=== PATIENT | male | born 1945 | race Caucasian/White ===

== ENCOUNTER 2019-05-13 21:38 | Inpatient (IN) | payer MEDICARE ==
[~2019-05-13] VITALS: Ht 172.7 cm; Wt 98.6 kg
[2019-05-13 22:02] LABS: Urine Bacteria NONE SEEN /hpf (None Seen); Urine Blood 3+ /uL (Negative); Urine WBC 24 /hpf (0 - 3)
[2019-05-13 22:03] LABS: Urine Specific Gravity 1.028 (1.001-1.035)
[2019-05-13 22:14] LABS: Basophils # (auto) 0.1 uL; Basophils % (auto) 0.5 % (0.0-2.0); Eosinophils # (auto) 0 uL; Eosinophils % (auto) 0.2 % (0.0-7.0); Hematocrit 39.8 % (41.0-53.0); Hemoglobin 13.5 g/dL (13.5-17.5); Lymphocytes % (auto) 8.5 % (10.0-50.0); Mean Corpuscular Hemoglobin 30.4 pg (28.0-32.0); Mean Corpuscular Hgb Conc. 33.9 g/dL (32.0-36.0); Mean Corpuscular Volume 89.6 fL (80.0-100.0); Monocytes # (auto) 0.8 uL; Monocytes % (auto) 6.9 % (0.0-12.0); Neutrophils % (auto) 83.9 % (37.0-80.0); Platelet Count (auto) 305 10^3/uL (140-450); Red Blood Cells 4.44 10^6/uL (4.5-5.90); White Blood Cell 11.9 10^3/uL (4.4-10.8)
[2019-05-13 22:20] LABS: INR 0.95 (0.9-1.15); Partial Thromboplastin Time 28.5 sec (23.64-32.05)
[2019-05-13 22:23] LABS: Albumin 3.7 g/dL (3.4-5.0); BUN/Creatinine Ratio 12.4; Calcium 8.6 mg/dL (8.5-10.1); Potassium 4.1 mmol/L (3.5-5.1)
[2019-05-13 22:26] LABS: Bilirubin, Total 0.5 mg/dL (0.2-1.0); Total Protein 7.4 g/dL (6.4-8.2)
[2019-05-14] MEDS ORDERED: HYDROmorphone HCL 2 MG/ML VL IV ONE (03:00)
[2019-05-14] MEDS ORDERED: SODIUM CHLORIDE 0.9% 1,000 ML IV ONE (03:00)
[2019-05-14] MEDS ORDERED: ONDANSETRON HCL 4 MG/2 ML VIAL IV ONE (03:00)
[2019-05-14] MEDS ORDERED: cefTRIAXone 1GM/50ML D5W 50 ML IV ONE (04:45)
[2019-05-14] MEDS ORDERED: ONDANSETRON HCL 4 MG/2 ML VIAL IV PRN (04:45)
[2019-05-14] MEDS ORDERED: TEMAZEPAM 15 MG CAP PO PRN (04:45)
[2019-05-14] MEDS ORDERED: MORPHINE SULFATE 4 MG/ML SYR/VIAL IV PRN (04:45)
[2019-05-14] MEDS ORDERED: KETOROLAC TROMETH 30 MG/ML 1ML VIAL IV ONE (04:45)
[2019-05-14] MEDS ORDERED: DEXTROSE (50%) 50ML SYRG IV PRN (04:45)
[2019-05-14] MEDS ORDERED: NIFE30TA76 PO (06:12)
[2019-05-14] MEDS ORDERED: APIX5TAB PO (06:12)
[2019-05-14] MEDS ORDERED: ISOS30TA4 PO (06:12)
[2019-05-14] MEDS ORDERED: ROSU20TA14 PO (06:12)
[2019-05-14] MEDS ORDERED: OMEG100062 PO (06:12)
[2019-05-14] MEDS ORDERED: METO25TA62 PO (06:12)
[2019-05-14] MEDS ORDERED: LEVO50TA7 PO (06:12)
[2019-05-14] MEDS ORDERED: METF-370 PO (06:12)
[2019-05-14] MEDS ORDERED: ESOM40CA39 PO (06:12)
[2019-05-14] MEDS: InsuLIN REG 1unit/0.01ml Soln (100units/ml) SC SCH ×4 (06:18→23:52)
[2019-05-14] MEDS: ACCU-CHEK COMFORT CURVE STRIP VI SCH ×4 (06:18→23:52)
[2019-05-14] MEDS: LEVOTHYROXINE SODIUM 50 MCG TAB PO SCH (06:22)
[2019-05-14 09:00] VITALS: BP 135/80
--- NOTE | 2019-05-14 09:00 | NUR ---
CAME ON WC FROM WE, PATIENT ALERT AND ORIENTED X4, NOT IN DISTRESS, CLEAR LS IN BILATERAL LUNG LOBES, RR=18, SAT=98%, HEART R=80, DEEP BREATHING AND COUGHING ENCOURAGED, DEMONSTRATED WELL, DENIED CHEST PAIN OR SOB AT THIS MOMENT, ABDOMEN SOFT WITH ACTIVE BS, LAST BM=05/13/19 REPORTED, LARRY CATH IN PLACE PATENT, DRAINING CLEAR YELLOW URINE, GENERAL SKIN INTACT WARM TO TOUCH, RADIAL AND PEDAL PULSES PALPABLE, RESTING ON BED, HEAD OF BED ELEVATED, BED IN LOW POSITION, RAILS UP X2, CALL LIGHT IN REACH, WILL CONTINUE MONITORING.
[2019-05-14 09:55] LABS: Hemoglobin 12.4 g/dL (13.5-17.5)
[2019-05-14] MEDS: cefTRIAXone 1GM/50ML D5W 50 ML IV SCH (10:19)
[2019-05-14] MEDS: ISOSORBIDE MONONITRATE ER 60 MG TAB PO SCH (10:20)
[2019-05-14] MEDS: METOPROLOL TARTRATE 25 MG TAB PO SCH ×2 (10:20→21:27)
[2019-05-14] MEDS: AMIODARONE HCL 200 MG TAB PO SCH (10:20)
[2019-05-14] MEDS: PANTOPRAZOLE 40 MG TAB PO SCH (10:21)
[2019-05-14 12:00] VITALS: BP 129/73
[2019-05-14] MEDS ORDERED: MANNITOL FTV 25% 12.5 GM/50 ML 50 ML IV ONE (12:15)
[2019-05-14] MEDS ORDERED: TAMSULOSIN HYDROCHLORIDE 0.4 MG CAP PO ONE (12:15)
[2019-05-14 12:56] LABS: Basophils # (auto) 0.1 uL; Basophils % (auto) 0.7 % (0.0-2.0); Eosinophils # (auto) 0 uL; Eosinophils % (auto) 0.4 % (0.0-7.0); Hematocrit 36.4 % (41.0-53.0); Hemoglobin 12.6 g/dL (13.5-17.5); Lymphocytes % (auto) 11.5 % (10.0-50.0); Mean Corpuscular Hemoglobin 30.5 pg (28.0-32.0); Mean Corpuscular Hgb Conc. 34.6 g/dL (32.0-36.0); Mean Corpuscular Volume 88.1 fL (80.0-100.0); Monocytes # (auto) 0.7 uL; Monocytes % (auto) 8.5 % (0.0-12.0); Neutrophils # (auto) 6.8 uL; Neutrophils % (auto) 78.9 % (37.0-80.0); Platelet Count (auto) 241 10^3/uL (140-450); Red Blood Cells 4.13 10^6/uL (4.5-5.90); Red Cell Distribution Width 15.7 % (11.8-14.3); White Blood Cell 8.6 10^3/uL (4.4-10.8)
[2019-05-14 13:08] LABS: BUN/Creatinine Ratio 14.1; Calcium 7.9 mg/dL (8.5-10.1); Potassium 3.8 mmol/L (3.5-5.1)
--- NOTE | 2019-05-14 16:00 | NUR ---
UROLOGY CONSULT WAS DONE, RESTING ON BED, NOT IN DISTRESS DENID PAIN, WILL CONTINUE MONITORING.
[2019-05-14 17:00] VITALS: BP 128/72
[2019-05-14] MEDS ORDERED: TAMSULOSIN HYDROCHLORIDE 0.4 MG CAP PO SCH (18:00)
--- NOTE | 2019-05-14 19:04 | NUR ---
TOLERATED DINNER TRAY WELL, RESTING ON BED, REPORT WAS GIVEN TO THE ASSET PROTECTION MANAGER RN.
--- NOTE | 2019-05-14 19:40 | NUR ---
Opening Shift Note Assumed care of patient, awake and alert. No S/S of distress/SOB or pain. Chaparro draining clear, yellow urine to gravity. Bed locked in lowest position, side rails upx2, call light within reach. Instructed on POC and to call for assist PRN, will continue to monitor for changes Q1hr and PRN.
[2019-05-14] MEDS: TAMSULOSIN HYDROCHLORIDE 0.4 MG CAP PO SCH (19:44)
[2019-05-14] MEDS: HYDROcodone-ACET 5/325MG TAB PO PRN (19:44)
[2019-05-14] MEDS: ACETAMINOPHEN 325 MG TAB PO PRN (21:27)
[2019-05-14] MEDS: ATORVASTATIN 20 MG TAB PO SCH (21:27)
[2019-05-14 22:34] VITALS: BP 137/73
--- NOTE | 2019-05-14 23:15 | NUR ---
Patient ambulated around unit. Patient tolerated well.
[2019-05-15 05:26] VITALS: BP 139/79
[2019-05-15] MEDS: InsuLIN REG 1unit/0.01ml Soln (100units/ml) SC SCH ×4 (06:00→23:44)
[2019-05-15 06:03] LABS: Basophils # (auto) 0 uL; Basophils % (auto) 0.4 % (0.0-2.0); Eosinophils # (auto) 0.1 uL; Eosinophils % (auto) 0.6 % (0.0-7.0); Hematocrit 39.7 % (41.0-53.0); Hemoglobin 12.9 g/dL (13.5-17.5); Lymphocytes # (auto) 0.9 uL; Mean Corpuscular Hemoglobin 30.7 pg (28.0-32.0); Mean Corpuscular Hgb Conc. 32.5 g/dL (32.0-36.0); Mean Corpuscular Volume 94.2 fL (80.0-100.0); Monocytes # (auto) 0.8 uL; Monocytes % (auto) 9.2 % (0.0-12.0); Neutrophils # (auto) 6.5 uL; Neutrophils % (auto) 78.8 % (37.0-80.0); Platelet Count (auto) 206 10^3/uL (140-450); Red Blood Cells 4.21 10^6/uL (4.5-5.90); White Blood Cell 8.2 10^3/uL (4.4-10.8)
[2019-05-15] MEDS: ACCU-CHEK COMFORT CURVE STRIP VI SCH ×4 (06:19→23:45)
[2019-05-15] MEDS: HYDROcodone-ACET 5/325MG TAB PO PRN (06:20)
[2019-05-15 06:33] LABS: Anion Gap 9 (5-15); Blood Urea Nitrogen 25 mg/dL (7-18); Calcium 7.7 mg/dL (8.5-10.1); Carbon Dioxide 20 mmol/L (21-32); Chloride 107 mmol/L (98-107); GFR African American 48 mL/min; GFR Non-African American 40 mL/min; Glucose 115 mg/dL (74-106); Potassium 4.4 mmol/L (3.5-5.1); Sodium 136 mmol/L (136-145)
[2019-05-15] MEDS: LEVOTHYROXINE SODIUM 50 MCG TAB PO SCH (06:51)
--- NOTE | 2019-05-15 08:00 | NUR ---
Morning note patient resting in bed with even and unlabored respirations, no distress noted. Instructed patient on POC, fall precautions and to call for assistance as needed. Fall precautions in place with bed in lowest locked position with x2 side rails up and call light within reach. Will continue to monitor q1hr & PRN.
[2019-05-15 09:00] VITALS: BP 133/68
[2019-05-15] MEDS: PANTOPRAZOLE 40 MG TAB PO SCH (09:23)
[2019-05-15] MEDS: cefTRIAXone 1GM/50ML D5W 50 ML IV SCH (09:23)
[2019-05-15] MEDS: METOPROLOL TARTRATE 25 MG TAB PO SCH ×2 (09:24→22:29)
[2019-05-15] MEDS: ISOSORBIDE MONONITRATE ER 60 MG TAB PO SCH (09:24)
[2019-05-15] MEDS: ACETAMINOPHEN 325 MG TAB PO PRN ×2 (09:24→17:28)
[2019-05-15] MEDS: AMIODARONE HCL 200 MG TAB PO SCH (09:28)
--- NOTE | 2019-05-15 12:10 | NUR ---
Patient transferred to room 293B Patient ambulated to room 293B with steady gait. No complications noted. All personal belongings transferred with the patient. Patient will update his , per the patient.
--- NOTE | 2019-05-15 12:17 | NUR ---
was at bedside - Dr. Christie Orders received and read back to verify.
[2019-05-15] MEDS ORDERED: APIXABAN 5 MG TAB PO ONE (12:30)
[2019-05-15 13:00] VITALS: BP 111/68
--- NOTE | 2019-05-15 16:15 | NUR ---
Patient resting in bed with even and unlabored respirations, no distress noted. Encouraged PO fluid intake. Patient verbalized understanding. Call light within reach. Will continue to monitor q1hr & PRN.
[2019-05-15] MEDS: TAMSULOSIN HYDROCHLORIDE 0.4 MG CAP PO SCH (17:28)
--- NOTE | 2019-05-15 17:35 | NUR ---
Patient reports ambulation Patient stated "I walked all the way down to the last nursing station. I'm just tired." Patient resting in bed with even and unlabored respirations, no distress noted. Patient reports a WASHBURN rated 3/10. PRN pain medication administered per MD order. Patient denies pain in the abdomen and/or flank areas.
[2019-05-15 17:38] VITALS: BP 135/66
--- NOTE | 2019-05-15 18:49 | NUR ---
Closing note patient resting in bed with even and unlabored respirations, no distress noted. Fall precautions in place with bed in lowest locked position with x2 side rails up and call light within reach.
--- NOTE | 2019-05-15 19:26 | NUR ---
Care endorsed to ROCÍO Momin
--- NOTE | 2019-05-15 20:30 | NUR ---
RECEIVE IN BED WATCHING TV NO VOICED COMPLAINTS
[2019-05-15 22:00] VITALS: BP 139/75
[2019-05-15] MEDS: APIXABAN 5 MG TAB PO SCH (22:27)
[2019-05-15] MEDS: ATORVASTATIN 20 MG TAB PO SCH (22:28)
[2019-05-16 05:00] VITALS: BP 128/63
[2019-05-16 05:49] LABS: Basophils # (auto) 0 uL; Basophils % (auto) 0.5 % (0.0-2.0); Eosinophils # (auto) 0.1 uL; Eosinophils % (auto) 0.6 % (0.0-7.0); Hematocrit 36.8 % (41.0-53.0); Hemoglobin 12.5 g/dL (13.5-17.5); Lymphocytes # (auto) 0.7 uL; Lymphocytes % (auto) 7.9 % (10.0-50.0); Mean Corpuscular Hemoglobin 30.7 pg (28.0-32.0); Mean Corpuscular Hgb Conc. 33.9 g/dL (32.0-36.0); Mean Corpuscular Volume 90.5 fL (80.0-100.0); Monocytes # (auto) 0.6 uL; Monocytes % (auto) 6.9 % (0.0-12.0); Neutrophils # (auto) 7.5 uL; Neutrophils % (auto) 84.1 % (37.0-80.0); Platelet Count (auto) 236 10^3/uL (140-450); Red Blood Cells 4.06 10^6/uL (4.5-5.90)
[2019-05-16] MEDS: InsuLIN REG 1unit/0.01ml Soln (100units/ml) SC SCH ×2 (06:00→12:00)
[2019-05-16] MEDS: ACCU-CHEK COMFORT CURVE STRIP VI SCH ×2 (06:04→12:07)
[2019-05-16 06:15] LABS: Calcium 8.5 mg/dL (8.5-10.1); Potassium 4.1 mmol/L (3.5-5.1)
[2019-05-16 06:17] LABS: BUN/Creatinine Ratio 14.3
[2019-05-16] MEDS: LEVOTHYROXINE SODIUM 50 MCG TAB PO SCH (06:28)
[2019-05-16 09:00] VITALS: BP 147/74
[2019-05-16] MEDS: cefTRIAXone 1GM/50ML D5W 50 ML IV SCH (09:50)
[2019-05-16] MEDS: APIXABAN 5 MG TAB PO SCH (09:50)
[2019-05-16] MEDS: PANTOPRAZOLE 40 MG TAB PO SCH (09:50)
[2019-05-16] MEDS: ISOSORBIDE MONONITRATE ER 60 MG TAB PO SCH (09:51)
[2019-05-16] MEDS: METOPROLOL TARTRATE 25 MG TAB PO SCH (09:51)
--- NOTE | 2019-05-16 10:58 | NUR ---
was at bedside - Dr. Christie Orders received and read back to verify.
[2019-05-16] MEDS ORDERED: NITR100C44 PO (10:59)
--- NOTE | 2019-05-16 11:43 | NUR ---
Chester catheter discontinued Order to discontinue chester catheter. Chester discontinued with clean technique following deflation of balloon. Patient tolerated well with no complaints of pain. 1000 ml of dark bautista urine with sediment noted. No foul odor noted.
--- NOTE | 2019-05-16 13:55 | NUR ---
Patient had post void urine s/p Chaparro catheter removal Patient states "I feel like I'm back to normal in that department." Will proceed with discharge per MD order.
--- NOTE | 2019-05-16 14:14 | NUR ---
Discharge Discharge education and paperwork given to the patient per MD order. Patient verbalized understanding. Instructed patient to follow up with urologist per MD order. Patient verbalized understanding. IV removed with clean technique, catheter intact. Dressing applied. Patient tolerated well, no trauma to site. Respirations even and unlabored, no distress noted. Patient has steady gait. Instructed patient to collect all personal belongings. patient verbalized understanding. Patient refused wheelchair. Patient ambulated to private vehicle with all personal belongings with his spouse at his significant other at his side.
== END 2019-05-16 14:13 | disposition home or self-care (01) | DRG 690 ==
LOC: ER 21:38 → OVERFLOW 21:39 → ER 22:37 → WEST WING 05-14 09:05
PROVIDERS: ADMIT Nurse Practitioner; ATTEND Internal Medicine Nephrology
DX: N13.6 Pyonephrosis (principal); I48.91 Unspecified atrial fibrillation; N17.9 Acute kidney failure, unspecified; K21.9 Gastro-esophageal reflux disease without esophagitis; I12.9 Hypertensive chronic kidney disease with stage 1 through stage 4 chronic kidney disease, or unspecified chronic kidney disease; E11.22 Type 2 diabetes mellitus with diabetic chronic kidney disease; N18.3 Chronic kidney disease, stage 3 (moderate); K57.30 Diverticulosis of large intestine without perforation or abscess without bleeding; Z80.0 Family history of malignant neoplasm of digestive organs; Z80.42 Family history of malignant neoplasm of prostate
CPT/HCPCS: 36415; 51702; 74176; 80048; 80053; 81001; 82150; 82962; 83690; 85014; 85018; 85025; 85610; 85730; 87086; 96365; 96366; 96375; G0378; J0696; J1815; J1885; J2405

== ENCOUNTER 2019-05-21 06:08 | Emergency (ER) | payer MEDICARE, OTHER ==
[~2019-05-21] VITALS: Ht 172.7 cm; Wt 86.6 kg
[~2019-05-21 06:08] MED LIST: APIX5TAB PO; ESOM40CA39 PO; ISOS30TA4 PO; LEVO50TA7 PO; METF-370 PO; METO25TA62 PO; NIFE30TA76 PO; NITR100C44 PO; OMEG100062 PO; ROSU20TA14 PO
[2019-05-21] MEDS ORDERED: KETOROLAC TROMETH 30 MG/ML 1ML VIAL IV ONE (07:15)
[2019-05-21 07:20] LABS: Urine Bacteria NONE SEEN /hpf (None Seen); Urine Blood Negative /uL (Negative); Urine Mucus FEW (None Seen); Urine Specific Gravity 1.017 (1.001-1.035); Urine WBC <1 /hpf (0 - 3)
[2019-05-21 07:22] LABS: Basophils # (auto) 0.1 uL; Eosinophils # (auto) 0.1 uL; Eosinophils % (auto) 1.2 % (0.0-7.0); Hematocrit 39.1 % (41.0-53.0); Hemoglobin 12.8 g/dL (13.5-17.5); Mean Corpuscular Hemoglobin 29.8 pg (28.0-32.0); Mean Corpuscular Hgb Conc. 32.8 g/dL (32.0-36.0); Mean Corpuscular Volume 90.9 fL (80.0-100.0); Monocytes # (auto) 0.6 uL; Monocytes % (auto) 6.1 % (0.0-12.0); Neutrophils # (auto) 7.6 uL; Neutrophils % (auto) 80.7 % (37.0-80.0); Platelet Count (auto) 339 10^3/uL (140-450); Red Cell Distribution Width 14.7 % (11.8-14.3); White Blood Cell 9.5 10^3/uL (4.4-10.8)
[2019-05-21] MEDS ORDERED: SODIUM CHLORIDE 0.9% 1,000 ML IVB ONE (07:34)
[2019-05-21 08:37] LABS: Albumin 3.2 g/dL (3.4-5.0); BUN/Creatinine Ratio 13.2; Calcium 8.6 mg/dL (8.5-10.1); Potassium 4.3 mmol/L (3.5-5.1)
[2019-05-21 08:40] LABS: Bilirubin, Total 0.3 mg/dL (0.2-1.0); Total Protein 7.1 g/dL (6.4-8.2)
[2019-05-21 09:07] VITALS: BP 169/74
== END 2019-05-21 10:06 | disposition home or self-care (01) ==
LOC: ER 06:08
DX: N20.1 Calculus of ureter (principal); I10 Essential (primary) hypertension; E11.9 Type 2 diabetes mellitus without complications; I25.2 Old myocardial infarction; K21.9 Gastro-esophageal reflux disease without esophagitis; Z85.46 Personal history of malignant neoplasm of prostate; Z90.89 Acquired absence of other organs; Z95.0 Presence of cardiac pacemaker; Z95.1 Presence of aortocoronary bypass graft; Z79.899 Other long term (current) drug therapy
CPT/HCPCS: 36415; 74176; 80053; 81001; 83690; 85025; 94761; 96374; 99284; J1885; J7030